=== PATIENT | female | born 1940 ===

== ENCOUNTER 2024-06-30 07:30 | Day surgery (SDC) | payer OTHER, SELFPAY ==
[2024-06-30] VITALS (18 sets, daily range): BP systolic 132–172; BP diastolic 74–131; BMI 25.9
[2024-06-30 08:14] LABS: Glucose - Point of Care 94 mg/dl (70-99)
--- NOTE | 2024-06-30 10:12 | ITS.CL.CATH ---
Sales Training Coordinator - Catheterization
Cardiac Catheterization
Procedure Report:
CARDIAC CATHETERIZATION REPORT
Date of Procedure: 06/30/2024
Referring: Mitchell Delacruz MD
Indication: Worsening angina
�
HEMODYNAMIC DATA
AO: 184/
LV:
�
LEFT VENTRICULOGRAPHY: Inferobasal and mid inferior akinesis-the LVEF is 41% with at least mild mitral regurgitation
�
CORONARY ANGIOGRAPHY
Dominance: Right
Left Main: Mild luminal disease.
LAD: The LAD is occluded at its origin. A ORES-zefqfurn-FXL sequential graft supplies a very large diagonal and goes on to supply a diffusely severely diseased subtotally vs totally occluded LAD. The appearance of the LAD similar to the prior
studies from 2020 and 2016.
Circumflex: The circumflex gives rise to a high rising OM1 which is a medium size branch without significant disease. There is a long stented segment from the proximal through the mid circumflex with no restenosis. OM 2 is small. OM 3 is a large
bifurcating vessel with 70-80% stenosis proximally in the much larger daughter branch. There has been some progression of this lesion compared with its appearance on the 2020 study.
RCA: The RCA is dominant and severely calcified with a long 60% proximal to mid stenosis similar in appearance to the 12/2020 study
FloWire assessment: We opted to perform FloWire assessment of the 70-80% proximal lesion in the large branch of OM 3. Heparin was used for anticoagulation. A 6 [place] EBU 3.5 guide catheter was used. We were not able to get the [place] flow wire
into the branch in question. A BMW wire was then advanced into this branch with minimal difficulty. We tried to follow this wire with the [place] FloWire to no avail. At this point we opted to abandon FloWire assessment and treat the lesion.
Angioplasty: An attempt was made to pass a 3.0 x 18 [place] NANCY cross the lesion but it would not cross. The undeployed stent was removed and balloon angioplasty performed with a 2.25 x 12 Euphora to 12 troy. I felt we would need the services
of a 6 [place] guide liner which was then placed into the mid circumflex allowing us to easily pass the 3.0 x 18 [place] NANCY to the target location where it was deployed at 14 troy and then postdilated with a 3.0 NC Euphora to 18 troy. The final
angiographic result was outstanding. There were no procedural complications.
�
Closure Device: 6 [place]ese Angio-Seal L FA
�
Radiation (mGy): 596
DAP (cm2.Gy): 34.1
Fluoroscopy time: 11.5 minutes
�
CONCLUSIONS
1:�Systemic hypertension
2:�Elevated LVEDP
3. Inferobasal and mid inferior akinesis with EF 41%
4. At least mild and more likely moderate mitral regurgitation
5. Severe [place] multivessel CAD as described with patent sequential VEKG-ttexvysr-TZI bypass graft with excellent runoff into a large diagonal branch and runoff into a chronically severely diffusely diseased subtotally occluded LAD
6. Unsuccessful attempted FloWire assessment of the 70-80% OM 3 lesion due to inability to pass guidewire through the lesion.
7. Successful angioplasty and stenting of 70-80% OM 3 lesion with placement of 3.0 x 18 [place] NANCY with outstanding final result
8. We will treat with triple therapy for 1 week (Xarelto 10 mg-aspirin 81-Plavix 75) then continue Xarelto 10 mg/Plavix for 6-12 months after which time the Xarelto dose can be increased back to 15 mg and Plavix discontinued in favor of low-dose
aspirin
9. Losartan 25 mg will be started given her elevated blood pressure and left ventricular dysfunction isosorbide will be discontinued at this time
�
�
Copy to: Mitchell Delacruz MD, [facility],
�
Jalen Joyner MD, [facility], [facility]
[2024-06-30 11:40] LABS: ACT-LR - POC > 397 Seconds (116-155)
[2024-06-30 11:40] LABS: ACT-LR - POC > 397 Seconds (116-155)
[2024-06-30] MEDS: TYLENOL 650 MG PO (11:52)
[2024-06-30] MEDS: NSS 465 IV (11:53)
[2024-06-30] MEDS: COZAAR 25 MG PO (12:35)
[2024-06-30] MEDS: MYLICON 80 MG PO (14:19)
[2024-06-30] MEDS: PROTONIX IV 40 MG IV (14:19)
--- NOTE | 2024-06-30 17:14 | W.PN.UPDATE ---
Update Note
Progress Note Update
83 yo WF s/p PCI OM3 (same day). She initially had some shoulder/neck and pain under left ribs which improved slowly with Protonix, simethicone and HOB 30deg, denies sob, alina diet but then vomited and felt better immendiatly. EKG with STD
anteriorly, L fem site c/d/i soft. Cardiac rehab c/s. Activity restrictions reviewed. SHe will be on DAPT ASA/Plavix and Xarelto decreased to 10mg for 1 week then stop ASA. She will add PPI for GI protection with Plavix, Xarelto. Her EF 41%, and bp
elevated, will initiate losartan 25mg daily with BMP check in 1 week. She will f/u Dr. Dealcruz in 2-4 weeks. She is for d/c home after 4pm.
CONCLUSIONS
1:�Systemic hypertension
2:�Elevated LVEDP
3. Inferobasal and mid inferior akinesis with EF 41%
4. At least mild and more likely moderate mitral regurgitation
5. Severe [facility] [place] multivessel CAD as described with patent sequential VOQT-jvpabuyg-MGN bypass graft with excellent runoff into a large diagonal branch and runoff into a chronically severely diffusely diseased subtotally occluded LAD
6. Unsuccessful attempted FloWire assessment of the 70-80% OM 3 lesion due to inability to pass guidewire through the lesion.
7. Successful angioplasty and stenting of 70-80% OM 3 lesion with placement of 3.0 x 18 [place] NANCY with outstanding final result
8. We will treat with triple therapy for 1 week (Xarelto 10 mg-aspirin 81-Plavix 75) then continue Xarelto 10 mg/Plavix for 6-12 months after which time the Xarelto dose can be increased back to 15 mg and Plavix discontinued in favor of low-dose
aspirin
9. Losartan 25 mg will be started given her elevated blood pressure and left ventricular dysfunction isosorbide will be discontinued at this time
�
�
== END 2024-06-30 16:45 | disposition home or self-care (01) ==
LOC: CATH 07:30
PROVIDERS: ATTENDING PHYSICIAN Internal Medicine Cardiovascular Disease; FAMILY PHYSICIAN Family Medicine; OTHER PHYSICIAN Internal Medicine Clinical Cardiac Electrophysiology
DX: I25.110 Atherosclerotic heart disease of native coronary artery with unstable angina pectoris (principal); I10 Essential (primary) hypertension; I34.0 Nonrheumatic mitral (valve) insufficiency; I45.2 Bifascicular block; R06.02 Shortness of breath; E11.9 Type 2 diabetes mellitus without complications; Z79.84 Long term (current) use of oral hypoglycemic drugs; Z79.82 Long term (current) use of aspirin; Z79.01 Long term (current) use of anticoagulants; Z79.02 Long term (current) use of antithrombotics/antiplatelets
CPT/HCPCS: 93799; C1769; C1894; C1725; 82962; 85347; 93005; 93459; C1760; C1874; C9600; Q9967